=== PATIENT | male | born 1960 | race Caucasian/White ===

== ENCOUNTER 2018-11-01 01:49 | Emergency (ER) | payer MEDICARE, MEDICAID ==
[~2018-11-01] VITALS: Ht 185.4 cm; Wt 99.8 kg
--- NOTE | 2018-11-01 01:50 | NUR ---
Dr. Jaimes at bedside for MSE.
--- NOTE | 2018-11-01 02:08 | NUR ---
Pt out of ER for CT.
--- NOTE | 2018-11-01 02:43 | NUR ---
Pt back to ER from CT.
[2018-11-01 03:24] LABS: BASOPHILS # (AUTO) 0.1 K/uL (0.0-8.0); BASOPHILS % (AUTO) 0.8 % (0.0-2.0); EOSINOPHILS # (AUTO) 0.2 K/uL (0.0-0.7); HEMATOCRIT 49.3 % (36.7-47.1); HEMOGLOBIN 16.7 g/dL (12.5-16.3); LYMPHOCYTES # (AUTO) 2.3 K/uL (20.0-40.0); LYMPHOCYTES % (AUTO) 29.4 % (20.5-51.5); MEAN CORPUSCULAR HEMOGLOBIN 30.9 uug (23.8-33.4); MEAN CORPUSCULAR HGB CONC 34 g/dL (32.5-36.3); MEAN CORPUSCULAR VOLUME 91.3 fL (73.0-96.2); MONOCYTES # (AUTO) 0.4 K/uL (2.0-10.0); MONOCYTES % (AUTO) 4.5 % (0.0-11.0); NEUTROPHILS # (AUTO) 4.9 K/uL (1.8-8.9); NEUTROPHILS % (AUTO) 62.3 % (38.5-71.5); PLATELET COUNT (AUTO) 119 K/uL (152-348); WHITE BLOOD COUNT (AUTO) 7.9 K/uL (3.6-10.2)
--- NOTE | 2018-11-01 03:25 | NUR ---
Xray at bedside.
[2018-11-01 03:45] LABS: BILIRUBIN,DIRECT 0.1 mg/dL (0.0-0.2); BILIRUBIN,TOTAL 0.3 mg/dL (0.2-1.0); CREATININE 0.7 mg/dL (0.6-1.3); POTASSIUM 3.7 mmol/L (3.5-5.1); TOTAL PROTEIN, SERUM 7.1 g/dL (6.4-8.2)
--- NOTE | 2018-11-01 05:37 | NUR ---
Pt sleeping in bed, no acute signs of distress.
--- NOTE | 2018-11-01 05:48 | NUR ---
Pt awoke and ambulated to the bathroom, no falls.
--- NOTE | 2018-11-01 06:58 | NUR ---
Report given to Agnes díaz.
--- NOTE | 2018-11-01 07:08 | NUR ---
Pt awake A/O x3, walked w/ steady gait to bathroom.
--- NOTE | 2018-11-01 07:30 | NUR ---
Breakfast provided, pt states dosen't want to eat at this time and wishes to go home.
[2018-11-01 07:45] VITALS: BP 129/75
--- NOTE | 2018-11-01 07:46 | NUR ---
Patient discharged to home in stable conditon. Written and verbal after care instructions given. Patient verbalizes understanding of instructions. Pt left ER w/ steady gait.
== END 2018-11-01 07:47 | disposition home or self-care (01) ==
LOC: ER 01:49
DX: S09.90XA Unspecified injury of head, initial encounter (principal); F10.129 Alcohol abuse with intoxication, unspecified; W19.XXXA Unspecified fall, initial encounter; Y93.89 Activity, other specified; Y92.89 Other specified places as the place of occurrence of the external cause; Y99.8 Other external cause status; Y90.6 Blood alcohol level of 120-199 mg/100 ml
CPT/HCPCS: 36415; 70450; 70486; 71045; 72125; 80048; 80076; 85025; 99284; G0480; A4663